=== PATIENT | male | born 1990 | race African-American/Black ===

== ENCOUNTER 2016-07-27 08:34 | Inpatient (IN) | payer OTHER ==
[~2016-07-27] VITALS: Ht 175.3 cm; Wt 88.5 kg
[2016-07-27] MEDS ORDERED: SALINE FLUSH 10 ML FLUSH PRN (12:15)
[2016-07-27] MEDS ORDERED: PHARMACY TO DOSE VANCOMYCIN IV SCH (12:15)
[2016-07-27] MEDS ORDERED: ACETAMINOPHEN 500 MG TAB PO PRN (12:15)
[2016-07-27 14:00] VITALS: BP_SYST 148; RESP 18; TEMP 98.2; Ht 175.3 cm; Wt 88.5 kg
[2016-07-27 15:24] VITALS: BP_SYST 131; RESP 16; TEMP 98.1
[2016-07-27] MEDS: VANCOMYCIN 1,250 MG in SODIUM CHLORIDE 0.9% 250 ML IV SCH (15:25)
[2016-07-27] MEDS: PIPERACIL/TAZO 4.5GM/100ML 100 ML IV SCH ×2 (16:59→23:33)
[2016-07-27 20:41] VITALS: BP_SYST 146; RESP 16; TEMP 99.3
[2016-07-27 22:25] VITALS: BP_SYST 142; RESP 16; TEMP 100
[2016-07-27] MEDS: SALINE FLUSH 10 ML FLUSH SCH (23:33)
[2016-07-28] MEDS: VANCOMYCIN 1,250 MG in SODIUM CHLORIDE 0.9% 250 ML IV SCH ×2 (02:53→15:07)
[2016-07-28 03:05] VITALS: BP_SYST 139; RESP 16; TEMP 98.8
[2016-07-28] MEDS: SODIUM CHLORIDE 0.9% FLUSH BAG 500 ML IV SCH (06:28)
[2016-07-28 07:00] VITALS: BP_SYST 151; RESP 16; TEMP 98.5
[2016-07-28] MEDS: PIPERACIL/TAZO 4.5GM/100ML 100 ML IV SCH ×3 (08:50→23:26)
[2016-07-28] MEDS: SALINE FLUSH 10 ML FLUSH SCH ×2 (08:51→20:25)
[2016-07-28 11:00] VITALS: BP_SYST 144; RESP 16; TEMP 98.6
[2016-07-28 14:00] VITALS: BP_SYST 130; RESP 16; TEMP 98.3
[2016-07-28 19:17] VITALS: BP_SYST 137; RESP 16; TEMP 98.6
[2016-07-28 23:09] VITALS: BP_SYST 137; RESP 16; TEMP 98.6
[2016-07-29] MEDS: VANCOMYCIN 1,250 MG in SODIUM CHLORIDE 0.9% 250 ML IV SCH ×3 (02:46→18:44)
[2016-07-29 03:24] VITALS: BP_SYST 146; RESP 16; TEMP 97.9
[2016-07-29] MEDS: SODIUM CHLORIDE 0.9% FLUSH BAG 500 ML IV SCH (05:41)
[2016-07-29 07:00] VITALS: BP_SYST 148; RESP 16; TEMP 98
[2016-07-29] MEDS: PIPERACIL/TAZO 4.5GM/100ML 100 ML IV SCH ×2 (07:57→15:59)
[2016-07-29] MEDS: SALINE FLUSH 10 ML FLUSH SCH ×2 (08:01→20:32)
[2016-07-29 11:00] VITALS: BP_SYST 135; RESP 16; TEMP 98.3
[2016-07-29 15:00] VITALS: BP_SYST 146; RESP 16; TEMP 97.3
[2016-07-29 19:16] VITALS: BP_SYST 130; RESP 16; TEMP 98.5
[2016-07-29 22:58] VITALS: BP_SYST 125; RESP 16; TEMP 98.3
[2016-07-30] MEDS: PIPERACIL/TAZO 4.5GM/100ML 100 ML IV SCH ×2 (01:05→10:09)
[2016-07-30] MEDS: VANCOMYCIN 1,250 MG in SODIUM CHLORIDE 0.9% 250 ML IV SCH ×2 (02:23→11:01)
[2016-07-30 02:24] VITALS: BP_SYST 134; RESP 18; TEMP 97.8
[2016-07-30] MEDS: SODIUM CHLORIDE 0.9% FLUSH BAG 500 ML IV SCH (06:00)
[2016-07-30 07:34] VITALS: BP_SYST 136; RESP 18; TEMP 98.4
[2016-07-30] MEDS: SALINE FLUSH 10 ML FLUSH SCH (08:00)
[2016-07-30 11:52] VITALS: BP_SYST 140; RESP 18; TEMP 98.3
[2016-07-30 12:30] VITALS: BP_SYST 140; RESP 18; TEMP 98.3
== END 2016-07-30 12:40 | disposition home or self-care (01) | DRG 603 ==
LOC: ENRESERVTM → ENRESERVDT → ER 08:34 → EMR 12:25 → ENPENDDIS 12:25 → 2NO 13:59
PROVIDERS: ADMIT Internal Medicine; ATTEND Internal Medicine
DX: L03.114 Cellulitis of left upper limb (principal)
CPT/HCPCS: 80048; 80053; 80202; 83605; 85025; 85652; 86141; 87040; 96365; 99232